=== PATIENT | male | born 1965 | race Caucasian/White ===

== ENCOUNTER 2023-07-07 06:59 | Observation (INO) | payer BC ==
[2023-07-07] MEDS ORDERED: PANTOPRAZOLE 40 MG/10 ML VIAL IVP STA (07:22)
[2023-07-07] MEDS ORDERED: ONDANSETRON 4 MG/2 ML VIAL IVP STA (07:22)
[2023-07-07] MEDS ORDERED: HYDROmorphone 0.5 MG/0.5 ML SYRINGE IVP STA (07:22)
[2023-07-07] MEDS ORDERED: SODIUM CHLORIDE 0.9% 500 ML 500 ML IV STA (07:22)
--- NOTE | 2023-07-07 07:26 | ED ---
General Adult HPI - General Chief complaint: Abdominal Pain Stated complaint: ABD Pain,Dizziness Time Seen by Provider: 07/07/23 07:10 Source: patient, RN notes reviewed, old records reviewed Mode of arrival: wheelchair Limitations: no limitations - History of Present Illness Initial comments: 58-year-old male with 5 hours of upper abdominal pain, epigastric and right upper quadrant. Patient has had nausea without vomiting. No fever. He states he feels bloated. He he had several small bowel movements throughout the night. Patient has history of hypertension, No chest pain. - Related Data Home Medications Medication Instructions Recorded Confirmed Aspirin EC [Ecotrin Low Dose] 81 mg PO HS 07/07/23 07/07/23 Multivitamins, Thera [Multivitamin 1 tab PO HS 07/07/23 07/07/23 (formulary)] Vesta-3/Dha/Epa/Fish Oil [Fish Oil 2 cap PO HS 07/07/23 07/07/23 1,000 mg Softgel] amLODIPine [Norvasc] 5 mg PO HS 07/07/23 07/07/23 Allergies Allergy/AdvReac Type Severity Reaction Status Date / Time No Known Allergies Allergy Verified 07/07/23 09:39 Review of Systems ROS Statement: Those systems with pertinent positive or pertinent negative responses have been documented in the HPI. ROS Other: All systems not noted in ROS Statement are negative. Past Medical History Past Medical History: Myocardial Infarction (CO) Past Surgical History: Heart Catheterization Past Psychological History: No Psychological Hx Reported Smoking Status: Never smoker Past Alcohol Use History: None Reported Past Drug Use History: None Reported General Exam Limitations: no limitations General appearance: alert, in no apparent distress Head exam: Present: atraumatic, normocephalic Eye exam: Present: normal appearance, PERRL ENT exam: Present: normal exam Neck exam: Present: normal inspection. Absent: tenderness, meningismus Respiratory exam: Present: normal lung sounds bilaterally. Absent: respiratory distress, wheezes Cardiovascular Exam: Present: regular rate, normal rhythm GI/Abdominal exam: Present: soft, distended, tenderness (Right upper quadrant). Absent: guarding, rebound Extremities exam: Present: normal inspection, normal capillary refill Neurological exam: Present: alert, oriented X3, CN II-XII intact. Absent: motor sensory deficit Psychiatric exam: Present: normal affect, normal mood Skin exam: Present: warm, dry, intact Course Vital Signs 07/07/23 07/07/23 07:06 11:00 Temperature 98.3 F 98.3 F Pulse Rate 69 69 Respiratory 18 16 Rate Blood Pressure 143/83 138/76 O2 Sat by Pulse 98 98 Oximetry Medical Decision Making - Medical Decision Making Was pt. sent in by a medical professional or institution (, PA, TV PRODUCTION ASSISTANT, urgent care, hospital, or long term...) When possible be specific @ -No Did you speak to anyone other than the patient for history (EMS, parent, family, police, friend...)? What history was obtained from this source @ -No Did you review nursing and triage notes (agree or disagree)? Why? @ -I reviewed and agree with nursing and triage notes Were old charts reviewed (outside hosp., previous admission, EMS record, old EKG, old radiological studies, urgent care reports/EKG's, long term records)? Report findings @ -No old charts were reviewed Differential Diagnosis (chest pain, altered mental status, abdominal pain women, abdominal pain men, vaginal bleeding, weakness, fever, dyspnea, syncope, headache, dizziness, GI bleed, back pain, seizure, CVA, palpatations, mental health, musculoskeletal)? @ Differential Abdominal Pain Men: Appendicitis, cholecystitis, diverticulosis, ischemic bowel, pancreatitis, hepatitis, UTI, gastroenteritis, AAA, incarcerated hernia, bowel obstruction, constipation, inflammatory bowel, hepatitis, peptic ulcer disease, splenic infarction, perforated viscus, testicular torsion, this is not meant to be an all-inclusive list EKG interpreted by me (3pts min.). @ Sinus rhythm, rate of 67, TN interval 208, QRS duration 107, QTC [address] segment elevation X-rays interpreted by me (1pt min.). @KUB, negative for obstruction or intraperitoneal free air CT interpreted by me (1pt min.). @ -None done U/S interpreted by me (1pt. min.). @ -Ultrasound of the gallbladder and right upper quadrant showing dilated gallbladder with pericholecystic fluid, positive Aguirre sign, gall stone. What testing was considered but not performed or refused? (CT, X-rays, U/S, labs)? Why? @ -None What meds were considered but not given or refused? Why? @ -None Did you discuss the management of the patient with other professionals (professionals i.e. , PA, TV PRODUCTION ASSISTANT, lab, RT, psych nurse, social media content specialist, cemetery counselor, teacher, civilian jail officer, insurance case manager)? Give summary @ -Case discussed with Dr. Putnam Was smoking cessation discussed for >3mins.? @ -No Was critical care preformed (if so, how long)? @ -No Were there social determinants of health that impacted care today? How? (Homelessness, low income, unemployed, alcoholism, drug addiction, transportation, low edu. Level, literacy, decrease access to med. care, prison, rehab)? @ -No Was there de-escalation of care discussed even if they declined (Discuss DNR or withdrawal of care, Hospice)? DNR status @ -No What co-morbidities impacted this encounter? (DM, HTN, Smoking, COPD, CAD, Cancer, CVA, ARF, Chemo, Hep., AIDS, mental health diagnosis, sleep apnea, morbid obesity)? @Hypertension Was patient admitted / discharged? Hospital course, mention meds given and route, prescriptions, significant lab abnormalities, going to OR and other pertinent info. @ -58-year-old male with epigastric and right upper quadrant pain with associated nausea. He has tenderness on exam. Ultrasound does show concern for acute cholecystitis although there is no gallbladder wall edema on ultrasound. Patient's has normal white blood cell count, he has an elevated lactic acid of 4.2 which is treated with IV fluids and IV antibiotics. He will be kept nothing by mouth and admitted to general surgery. Undiagnosed new problem with uncertain prognosis? @ -No Drug Therapy requiring intensive monitoring for toxicity (Heparin, Nitro, In sulin, Cardizem)? @ -No Were any procedures done? @ -No Diagnosis/symptom? @ -[Acute cholecystitis, lactic acidosis Acute, or Chronic, or Acute on Chronic? @Acute Uncomplicated (without systemic symptoms) or Complicated (systemic symptoms)? @ -default Side effects of treatment? @ -No Exacerbation, Progression, or Severe Exacerbation? @ -No Poses a threat to life or bodily function? How? (Chest pain, USA, CO, pneumonia, PE, COPD, DKA, ARF, appy, cholecystitis, CVA, Diverticulitis, Homicidal, Suicidal, threat to staff... and all critical care pts) @ -[Yes, sepsis - Lab Data Result diagrams: 07/07/23 07:47 07/08/23 05:24 Lab Results 07/07/23 07/07/23 07/07/23 Range/Units 07:47 07:47 07:47 WBC 6.2 (3.8-10.6) k/uL RBC 5.34 (4.30-5.90) m/uL Hgb 16.0 (13.0-17.5) gm/dL Hct 46.2 (39.0-53.0) % MCV 86.5 (80.0-100.0) fL MCH 29.9 (25.0-35.0) pg MCHC 34.6 (31.0-37.0) g/dL RDW 12.8 (11.5-15.5) % Plt Count 245 (150-450) k/uL MPV 8.0 Neutrophils % 71 % Lymphocytes % 20 % Monocytes % 6 % Eosinophils % 1 % Basophils % 1 % Neutrophils # 4.4 (1.3-7.7) k/uL Lymphocytes # 1.2 (1.0-4.8) k/uL Monocytes # 0.4 (0-1.0) k/uL Eosinophils # 0.0 (0-0.7) k/uL Basophils # 0.0 (0-0.2) k/uL PT 9.9 (9.0-12.0) sec INR 0.9 (<1.2) APTT 22.8 (22.0-30.0) sec Sodium (137-145) mmol/L Potassium (3.5-5.1) mmol/L Chloride (98-107) mmol/L Carbon Dioxide (22-30) mmol/L Anion Gap mmol/L BUN (9-20) mg/dL Creatinine (0.66-1.25) mg/dL Est GFR (CKD-EPI)AfAm (>60 ml/min/1.73 sqM) Est GFR (CKD-EPI)NonAf (>60 ml/min/1.73 sqM) Glucose (74-99) mg/dL Lactic Ac Sepsis Rflx Plasma Lactic Acid Oscar (0.7-2.0) mmol/L Calcium (8.4-10.2) mg/dL Total Bilirubin (0.2-1.3) mg/dL AST (17-59) U/L ALT (4-49) U/L Alkaline Phosphatase (38-126) U/L Troponin I (0.000-0.034) ng/mL Total Protein (6.3-8.2) g/dL Albumin (3.5-5.0) g/dL Amylase (30-110) U/L Lipase (23-300) U/L Urine Color Light Yellow Urine Appearance Turbid (Clear) Urine pH 8.0 (5.0-8.0) Ur Specific Bronson 1.014 (1.001-1.035) Urine Protein Negative (Negative) Urine Glucose (UA) Negative (Negative) Urine Ketones Negative (Negative) Urine Blood Negative (Negative) Urine Nitrite Negative (Negative) Urine Bilirubin Negative (Negative) Urine Urobilinogen <2.0 (<2.0) mg/dL Ur Leukocyte Esterase Negative (Negative) Urine RBC 3 (0-5) /hpf Urine WBC 3 (0-5) /hpf Ur Squamous Epith Cells <1 (0-4) /hpf Urine Bacteria Rare H (None) /hpf Hyaline Casts 3 H (0-2) /lpf Urine Mucus Rare H (None) /hpf 07/07/23 07/07/23 07/07/23 Range/Units 07:47 07:47 07:47 WBC (3.8-10.6) k/uL RBC (4.30-5.90) m/uL Hgb (13.0-17.5) gm/dL Hct (39.0-53.0) % MCV (80.0-100.0) fL MCH (25.0-35.0) pg MCHC (31.0-37.0) g/dL RDW (11.5-15.5) % Plt Count (150-450) k/uL MPV Neutrophils % % Lymphocytes % % Monocytes % % Eosinophils % % Basophils % % Neutrophils # (1.3-7.7) k/uL Lymphocytes # (1.0-4.8) k/uL Monocytes # (0-1.0) k/uL Eosinophils # (0-0.7) k/uL Basophils # (0-0.2) k/uL PT (9.0-12.0) sec INR (<1.2) APTT (22.0-30.0) sec Sodium 140 (137-145) mmol/L Potassium 3.7 (3.5-5.1) mmol/L Chloride 104 (98-107) mmol/L Carbon Dioxide 20 L (22-30) mmol/L Anion Gap 16 mmol/L BUN 21 H (9-20) mg/dL Creatinine 0.81 (0.66-1.25) mg/dL Est GFR (CKD-EPI)AfAm >90 (>60 ml/min/1.73 sqM) Est GFR (CKD-EPI)NonAf >90 (>60 ml/min/1.73 sqM) Glucose 112 H (74-99) mg/dL Lactic Ac Sepsis Rflx Plasma Lactic Acid Oscar 4.2 H* (0.7-2.0) mmol/L Calcium 9.5 (8.4-10.2) mg/dL Total Bilirubin 1.4 H (0.2-1.3) mg/dL AST 36 (17-59) U/L ALT 34 (4-49) U/L Alkaline Phosphatase 71 (38-126) U/L Troponin I <0.012 (0.000-0.034) ng/mL Total Protein 7.3 (6.3-8.2) g/dL Albumin 4.7 (3.5-5.0) g/dL Amylase 64 (30-110) U/L Lipase 113 (23-300) U/L Urine Color Urine Appearance (Clear) Urine pH (5.0-8.0) Ur Specific Bronson (1.001-1.035) Urine Protein (Negative) Urine Glucose (UA) (Negative) Urine Ketones (Negative) Urine Blood (Negative) Urine Nitrite (Negative) Urine Bilirubin (Negative) Urine Urobilinogen (<2.0) mg/dL Ur Leukocyte Esterase (Negative) Urine RBC (0-5) /hpf Urine WBC (0-5) /hpf Ur Squamous Epith Cells (0-4) /hpf Urine Bacteria (None) /hpf Hyaline Casts (0-2) /lpf Urine Mucus (None) /hpf 07/07/23 Range/Units 08:20 WBC (3.8-10.6) k/uL RBC (4.30-5.90) m/uL Hgb (13.0-17.5) gm/dL Hct (39.0-53.0) % MCV (80.0-100.0) fL MCH (25.0-35.0) pg MCHC (31.0-37.0) g/dL RDW (11.5-15.5) % Plt Count (150-450) k/uL MPV Neutrophils % % Lymphocytes % % Monocytes % % Eosinophils % % Basophils % % Neutrophils # (1.3-7.7) k/uL Lymphocytes # (1.0-4.8) k/uL Monocytes # (0-1.0) k/uL Eosinophils # (0-0.7) k/uL Basophils # (0-0.2) k/uL PT (9.0-12.0) sec INR (<1.2) APTT (22.0-30.0) sec Sodium (137-145) mmol/L Potassium (3.5-5.1) mmol/L Chloride (98-107) mmol/L Carbon Dioxide (22-30) mmol/L Anion Gap mmol/L BUN (9-20) mg/dL Creatinine (0.66-1.25) mg/dL Est GFR (CKD-EPI)AfAm (>60 ml/min/1.73 sqM) Est GFR (CKD-EPI)NonAf (>60 ml/min/1.73 sqM) Glucose (74-99) mg/dL Lactic Ac Sepsis Rflx Y Plasma Lactic Acid Oscar (0.7-2.0) mmol/L Calcium (8.4-10.2) mg/dL Total Bilirubin (0.2-1.3) mg/dL AST (17-59) U/L ALT (4-49) U/L Alkaline Phosphatase (38-126) U/L Troponin I (0.000-0.034) ng/mL Total Protein (6.3-8.2) g/dL Albumin (3.5-5.0) g/dL Amylase (30-110) U/L Lipase (23-300) U/L Urine Color Urine Appearance (Clear) Urine pH (5.0-8.0) Ur Specific Bronson (1.001-1.035) Urine Protein (Negative) Urine Glucose (UA) (Negative) Urine Ketones (Negative) Urine Blood (Negative) Urine Nitrite (Negative) Urine Bilirubin (Negative) Urine Urobilinogen (<2.0) mg/dL Ur Leukocyte Esterase (Negative) Urine RBC (0-5) /hpf Urine WBC (0-5) /hpf Ur Squamous Epith Cells (0-4) /hpf Urine Bacteria (None) /hpf Hyaline Casts (0-2) /lpf Urine Mucus (None) /hpf Disposition Clinical Impression: Acute cholecystitis Disposition: ADMITTED IP TO THIS HOSP Condition: Stable Is patient prescribed a controlled substance at d/c from ED?: No Time of Disposition: 09:11
[2023-07-07 07:56] LABS: Basophils % (A) 1 %; Eosinophils % (A) 1 %; HCT 46.2 % (39.0-53.0); Lymphocytes # (A) 1.2 k/uL (1.0-4.8); Lymphocytes % (A) 20 %; MCH 29.9 pg (25.0-35.0); MCHC 34.6 g/dL (31.0-37.0); MCV 86.5 fL (80.0-100.0); Monocytes # (A) 0.4 k/uL (0-1.0); Monocytes % (A) 6 %; Neutrophils # (A) 4.4 k/uL (1.3-7.7); Neutrophils % (A) 71 %; Platelet Count 245 k/uL (150-450); RBC 5.34 m/uL (4.30-5.90); RDW 12.8 % (11.5-15.5); WBC 6.2 k/uL (3.8-10.6)
[2023-07-07 08:09] LABS: INR 0.9 (<1.2)
[2023-07-07 08:10] LABS: ALT 34 U/L (4-49); AST 36 U/L (17-59); African American GFR (CKD) >90 (>60 ml/min/1.73 sqM); Albumin 4.7 g/dL (3.5-5.0); Alkaline Phosphatase 71 U/L (38-126); Amylase 64 U/L (30-110); Anion Gap 16 mmol/L; Blood Urea Nitrogen 21 mg/dL (9-20); Calcium 9.5 mg/dL (8.4-10.2); Carbon Dioxide 20 mmol/L (22-30); Chloride 104 mmol/L (98-107); Glucose 112 mg/dL (74-99); Lipase 113 U/L (23-300); Non-African American GFR(CKD) >90 (>60 ml/min/1.73 sqM); Partial Thromboplastin Time 22.8 sec (22.0-30.0); Potassium 3.7 mmol/L (3.5-5.1); Prothrombin Time 9.9 sec (9.0-12.0); Sodium 140 mmol/L (137-145); Total Bilirubin 1.4 mg/dL (0.2-1.3); Total Protein 7.3 g/dL (6.3-8.2)
--- NOTE | 2023-07-07 08:12 | XR ---
EXAMINATION TYPE: XR KUB DATE OF EXAM: 07/07/2023 8:01 AM INDICATION: Patient age:Male; 58 years old; Reason for study: abdominal pain; . COMPARISON: None. TECHNIQUE: One radiographic view of the abdomen was obtained. FINDINGS: Postsurgical changes of left hip. Hardware appears intact. Surgical anchors seen along the pelvis. Multiple calcifications are present. The bowel gas pattern is nonspecific without dilated lo ops of small or large bowel. There is no evidence for organomegaly or pneumoperitoneum. The osseous structures are intact. No abnormal calcifications are present. Fecal material and gas are demonstrat ed throughout the colon and rectum. IMPRESSION: 1. No evidence renal calculus. 2. Nonspecific bowel gas pattern without radiographic evidence for acute process.
[2023-07-07] MEDS ORDERED: SODIUM CHLORIDE 0.9% 1,000 ML IV ONE (08:34)
--- NOTE | 2023-07-07 08:55 | US ---
EXAMINATION TYPE: US gallbladder DATE OF EXAM: 07/07/2023 COMPARISON: NONE CLINICAL INDICATION: Male, 58 years old with history of ruq pain; RUQ pain, nausea TECHNIQUE: Multiple sonographic images of the right upper quadrant are obtained. FINDINGS: EXAM MEASUREMENTS: Liver Length: 15.6 cm Gallbladder Wall: 0.3 cm CBD: 0.5 cm Right Kidney: 11.7 x 5.4 x 5.2 cm Pancreas: Obscured by bowel gas Liver: appears wnl Gallbladder: stone = 0.8cm. possible small amount of pericholecystic fluid Evidence for sonographic Aguirre's sign: yes CBD: appears wnl Right Kidney: lower pole obscured by overlying bowel gas Pancreas is obscured by overlying bowel gas. Liver is slightly diffusely hyperechoic without focal le rosanne. No gallbladder wall thickening. Single gallstone identified. Common bile duct is within normal limits. Trace pericholecystic fluid suggested. Per retail service representative, positive sonographic Aguirre sign. Rig ht kidney is unremarkable without evidence of solid mass, nephrolithiasis, hydronephrosis. Limited ev aluation of the lower pole due to overlying bowel gas. Corticomedullary differentiation is maintained . IMPRESSION: 1. Findings equivocal for acute cholecystitis with single gallstone with trace pericholecystic fluid and reported positive sonographic Aguirre sign. However there is no wall thickening. Consider further evaluation nuclear medicine HIDA scan. 2. Hepatic steatosis.
[2023-07-07] MEDS ORDERED: HYDROmorphone 0.5 MG/0.5 ML SYRINGE IVP PRN ×2 (09:06→13:05)
[2023-07-07] MEDS ORDERED: NALOXONE 0.4 MG/ML 1 ML VIAL IV PRN ×2 (09:06→13:05)
[2023-07-07] MEDS ORDERED: ONDANSETRON 4 MG/2 ML VIAL IVP PRN ×2 (09:06→13:05)
[2023-07-07 09:45] LABS: Appearance,Urine Turbid (Clear); Bacteria,Urine Rare /hpf; Bilirubin,Urine Negative (Negative); Blood,Urine Negative (Negative); Color,Urine Light Yellow; Glucose,Urine (UA) Negative (Negative); Hyaline Casts,Urine 3 /lpf (0-2); Ketones,Urine Negative (Negative); Leukocyte Esterase,Urine Negative (Negative); Mucus,Urine Rare /hpf; Nitrite,Urine Negative (Negative); Protein,Urine Negative (Negative); RBC,Urine 3 /hpf (0-5); Specific Gravity,Urine 1.014 (1.001-1.035); Squamous Epithelial Cell,Urine <1 /hpf (0-4); Urobilinogen,Urine <2.0 mg/dL (<2.0); WBC,Urine 3 /hpf (0-5)
[2023-07-07] MEDS: PIPERACILLIN-TAZOBACTAM 3.375 GM in SODIUM CHLORIDE 0.9% 100 ML IVPB SCH ×3 (10:00→23:34)
[2023-07-07] MEDS: SODIUM CHLORIDE 0.9% 1,000 ML IV SCH ×3 (10:03→23:36)
[2023-07-07] MEDS ORDERED: IV FLUID CONTINUATION 1,000 ML IV ONE (11:45)
[2023-07-07] MEDS ORDERED: HEPARIN SODIUM,PORCINE/PF 5,000 UNIT/0.5 ML SYRINGE SQ ONE (12:02)
--- NOTE | 2023-07-07 12:03 | P.GSHP ---
History of Present Illness H&P Date: 07/07/23 Chief Complaint: Right upper quadrant pain This a 58-year-old male who presented to the emergency room last night with interrupted quadrant pain. Patient lives in [place]. He is vacationing at his cottage in [place]. Patient was worked up emergency room found have evidence acute cholecystitis. Patient currently feels well. He states he's had complaints of November quadrant pain over the last several months. Past Medical History Past Medical History: Myocardial Infarction (SD) Past Surgical History: Heart Catheterization Past Psychological History: No Psychological Hx Reported Smoking Status: Never smoker Past Alcohol Use History: None Reported Past Drug Use History: None Reported Medications and Allergies Home Medications Medication Instructions Recorded Confirmed Type Aspirin EC [Ecotrin Low Dose] 81 mg PO HS 07/07/23 07/07/23 History Multivitamins, Thera [Multivitamin 1 tab PO HS 07/07/23 07/07/23 History (formulary)] [place]-3/Dha/Epa/Fish Oil [Fish Oil 2 cap PO HS 07/07/23 07/07/23 History 1,000 mg Softgel] amLODIPine [Norvasc] 5 mg PO HS 07/07/23 07/07/23 History Allergies Allergy/AdvReac Type Severity Reaction Status Date / Time No Known Allergies Allergy Verified 07/07/23 09:39 Surgical - Exam Vital Signs Temp Pulse Resp BP Pulse Ox 98.3 F 69 18 143/83 98 07/07/23 07:06 07/07/23 07:06 07/07/23 07:06 07/07/23 07:06 07/07/23 07:06 - General well developed, well nourished - Eyes PERRL - ENT normal pinna - Neck no masses - Respiratory normal expansion - Cardiovascular Rhythm: regular - Abdomen Is minimal right upper quadrant pain. Abdomen: soft, non tender Results - Labs 07/07/23 07:47 07/07/23 07:47 Abnormal Lab Results - Last 24 Hours (Table) 07/07/23 07/07/23 07/07/23 Range/Units 07:47 07:47 07:47 Carbon Dioxide 20 L (22-30) mmol/L BUN 21 H (9-20) mg/dL Glucose 112 H (74-99) mg/dL Plasma Lactic Acid Oscar 4.2 H* (0.7-2.0) mmol/L Total Bilirubin 1.4 H (0.2-1.3) mg/dL Urine Bacteria Rare H (None) /hpf Hyaline Casts 3 H (0-2) /lpf Urine Mucus Rare H (None) /hpf Diabetes panel 07/07/23 Range/Units 07:47 Sodium 140 (137-145) mmol/L Potassium 3.7 (3.5-5.1) mmol/L Chloride 104 (98-107) mmol/L Carbon Dioxide 20 L (22-30) mmol/L BUN 21 H (9-20) mg/dL Creatinine 0.81 (0.66-1.25) mg/dL Glucose 112 H (74-99) mg/dL Calcium 9.5 (8.4-10.2) mg/dL AST 36 (17-59) U/L ALT 34 (4-49) U/L Alkaline Phosphatase 71 (38-126) U/L Total Protein 7.3 (6.3-8.2) g/dL Albumin 4.7 (3.5-5.0) g/dL Calcium panel 07/07/23 Range/Units 07:47 Calcium 9.5 (8.4-10.2) mg/dL Albumin 4.7 (3.5-5.0) g/dL Pituitary panel 07/07/23 Range/Units 07:47 Sodium 140 (137-145) mmol/L Potassium 3.7 (3.5-5.1) mmol/L Chloride 104 (98-107) mmol/L Carbon Dioxide 20 L (22-30) mmol/L BUN 21 H (9-20) mg/dL Creatinine 0.81 (0.66-1.25) mg/dL Glucose 112 H (74-99) mg/dL Calcium 9.5 (8.4-10.2) mg/dL Adrenal panel 07/07/23 Range/Units 07:47 Sodium 140 (137-145) mmol/L Potassium 3.7 (3.5-5.1) mmol/L Chloride 104 (98-107) mmol/L Carbon Dioxide 20 L (22-30) mmol/L BUN 21 H (9-20) mg/dL Creatinine 0.81 (0.66-1.25) mg/dL Glucose 112 H (74-99) mg/dL Calcium 9.5 (8.4-10.2) mg/dL Total Bilirubin 1.4 H (0.2-1.3) mg/dL AST 36 (17-59) U/L ALT 34 (4-49) U/L Alkaline Phosphatase 71 (38-126) U/L Total Protein 7.3 (6.3-8.2) g/dL Albumin 4.7 (3.5-5.0) g/dL - Imaging US - abdomen: report reviewed (Evidence of cholecystitis) Assessment and Plan Assessment: Cholecystitis. Patient was given the option to be discharged and follow-up with a surgeon closer to his home. Patient elected undergo laparoscopic cholecystectomy here today. I went over the risks and benefits of the procedure with the patient and his .
[2023-07-07] MEDS ORDERED: ONDANSETRON 4 MG/2 ML VIAL IVP ONE (12:08)
[2023-07-07] MEDS ORDERED: DEXAMETHASONE SOD PHOSPHATE 4 MG/ML 1 ML VIAL IVP ONE (12:08)
[2023-07-07] MEDS ORDERED: HEPARIN SODIUM,PORCINE 5,000 UNIT/ML 1 ML VIAL SQ ONE (12:09)
[2023-07-07] MEDS ORDERED: MIDAZOLAM 2 MG/2 ML VIAL ONE (12:21)
[2023-07-07] MEDS ORDERED: NEOSTIGMINE 1 MG/ML 10 ML VIAL ONE (12:21)
[2023-07-07] MEDS ORDERED: fentaNYL (PF) 50 MCG/ML 2 ML AMP ONE (12:21)
[2023-07-07] MEDS ORDERED: ROCURONIUM 10 MG/ML (5 ML VIAL) IV ONE (12:21)
[2023-07-07] MEDS ORDERED: LIDOCAINE 2% INJ 20 MG/ML (2 ML VIAL) ONE (12:21)
[2023-07-07] MEDS ORDERED: PROPOFOL 10 MG/ML 20 ML VIAL IV ONE (12:21)
[2023-07-07] MEDS ORDERED: KETOROLAC 15 MG/ML 1 ML VIAL ONE (12:21)
[2023-07-07] MEDS ORDERED: LIDOCAINE 4% LTA KIT (4 ML) TOPICAL ONE (12:21)
[2023-07-07] MEDS ORDERED: GLYCOPYRROLATE 0.2 MG/ML 2 ML VIAL ONE (12:21)
[2023-07-07] MEDS ORDERED: SUCCINYLCHOLINE CHLORIDE 200 MG/10 ML VIAL IV ONE (12:21)
[2023-07-07] MEDS ORDERED: BUPIVACAINE (PF) 0.25% 30 ML VIAL SQ ONE (12:46)
[2023-07-07] MEDS ORDERED: traMADol 50 MG TAB PO PRN (13:05)
[2023-07-07] MEDS ORDERED: HYDROcodone/APAP 5-325MG 1 EACH TAB PO PRN (13:05)
[2023-07-07] MEDS ORDERED: LACTATED RINGERS 1,000 ML IV ONE (13:05)
--- NOTE | 2023-07-07 13:05 | P.OP ---
Date of Procedure: 07/07/23 Preoperative Diagnosis: Cholecystitis Postoperative Diagnosis: Cholecystitis Procedure(s) Performed: Laparoscopic cholecystectomy Anesthesia: NAGA Surgeon: Sylvester Putnam Estimated Blood Loss (ml): 5 Pathology: other (Gallbladder) Condition: stable Disposition: PACU Description of Procedure: The patient was placed on the operating table. The patient received a general endotracheal tube anesthesia. The patients abdomen was prepped and draped in the usual sterile fashion. Through an infraumbilical stab incision, the fascia of the anterior abdominal wall was grasped with a pair of Kochers and then the Veress needle was placed in the peritoneal cavity. Position of the Veress needle was confirmed with positive drop test. The abdomen was then insufflated. After adequate insufflation, the 10 mm trocar was placed in the peritoneal cavity. Following this the laparoscope was placed in the peritoneal cavity. The patient was placed in the head-up, right side up position and then a 5 mm trocar was placed in the right lateral and right subcostal position under direct visualization. A 8 mm trocar was placed in the epigastric position. The gallbladder was grasped in the fundus and infundibulum. Traction on the gallbladder was placed in the lateral and the cephalad positions. The triangle of Calot was visualized.. The cystic duct was bluntly dissected until the union of the cystic duct and common bile duct was seen. A critical view of safety was achieved. The cystic duct was then divided and sealed with the Harmonic scissors. A PDS Endoloop was then placed throughout the cystic duct stump. The cystic artery divided and sealed with the Harmonic scissors. The gallbladder was then removed from the liver bed using Harmonic scissors. The gallbladder was then extracted through the epigastric port site. Operative field was checked for any bleeding spots and Harmonic scissors was used to coagulate the liver bed. The abdomen was irrigated. The trocars were removed. The skin was closed using interrupted 3-0 Vicryl suture. Dermabond dressing were applied. The patient tolerated the procedure well.
[2023-07-07] MEDS: KETOROLAC 15 MG/ML 1 ML VIAL IVP SCH ×2 (17:36→23:34)
--- NOTE | 2023-07-08 01:37 | P.CONS ---
History of Present Illness - Reason for Consult Consult date: 07/07/23 Medical management - Chief Complaint Abdominal pain - History of Present Illness Patient is a 58-year-old male with a known history of myalgia cardiac catheterization, hypertension presents to ER with complaints of abdominal pain mainly at right upper quadrant started last night and has been having nauseous and felt like bloating sensation in the abdomen. Patient states that he did have several small bowel movements throughout the night. Denies any episodes of vomiting. No complaints of chest pain or shortness of breath. KUB x-ray in the ER showed no evidence of renal calculus. Nonspecific bowel gas pattern without radiographic evidence for acute process. EKG showed sinus rhythm Ultrasound gallbladder showed findings equivocal for acute cholecystitis with a single gallstone with trace pericholecystic fluid and reported positive sonographic Aguirre sign. Consider further evaluation with nuclear medicine HIDA scan. Hepatic steatosis. Laboratory showed lactic acid 4.2, BUN 21 and creatinine 0.81 and total bilirubin level is 1.4. AST ALT and alk phos within normal limits. Amylase 113 Urinalysis is negative for infection. Acute cholecystitis with single gallstone as per ultrasound. Patient is status post laparoscopic cholecystectomy postoperative day 0 Prior history of DE status post cardiac catheterization. Hypertension DVT prophylaxis with Lovenox subcu. Plan: Patient will be continued IV hydration with normal saline. Empiric antibiotics now for Zosyn and follow-up closely. Continued pain management and encourage incentive spirometry. Blood pressure medications on hold currently as blood pressure is not elevated. We will continue to follow and further recommendations based on the clinical course. Monitor H&H and BMP tomorrow. Discussed with the patient at bedside in detail. Past Medical History Past Medical History: Myocardial Infarction ([place]) Past Surgical History: Heart Catheterization Past Psychological History: No Psychological Hx Reported Smoking Status: Never smoker Past Alcohol Use History: None Reported Past Drug Use History: None Reported Medications and Allergies Home Medications Medication Instructions Recorded Confirmed Type Aspirin EC [Ecotrin Low Dose] 81 mg PO HS 07/07/23 07/07/23 History Multivitamins, Thera [Multivitamin 1 tab PO HS 07/07/23 07/07/23 History (formulary)] [place]-3/Dha/Epa/Fish Oil [Fish Oil 2 cap PO HS 07/07/23 07/07/23 History 1,000 mg Softgel] amLODIPine [Norvasc] 5 mg PO HS 07/07/23 07/07/23 History Allergies Allergy/AdvReac Type Severity Reaction Status Date / Time No Known Allergies Allergy Verified 07/07/23 09:39 Physical Exam Vitals: Vital Signs Temp Pulse Pulse Resp BP BP Pulse Ox 07/07/23 14:15 64 16 124/74 98 07/07/23 14:00 57 L 16 125/71 100 07/07/23 13:45 61 16 123/70 100 07/07/23 13:30 64 16 135/72 100 07/07/23 13:11 97.1 F L 76 16 157/85 100 07/07/23 12:04 97.3 F L 69 20 136/74 97 07/07/23 11:00 98.3 F 69 16 138/76 98 07/07/23 07:06 98.3 F 69 18 143/83 98 Intake and Output 07/06/23 07/07/23 07/07/23 22:59 06:59 14:59 Intake Total 900 Output Total 5 Balance 895 Intake: IV 900 Output: Estimated Blood Loss 5 Other: Weight 79.379 kg Results CBC & Chem 7: 07/07/23 07:47 07/07/23 07:47 Labs: Abnormal Lab Results - Last 24 Hours (Table) 07/07/23 07/07/23 07/07/23 Range/Units 07:47 07:47 07:47 Carbon Dioxide 20 L (22-30) mmol/L BUN 21 H (9-20) mg/dL Glucose 112 H (74-99) mg/dL Plasma Lactic Acid Oscar 4.2 H* (0.7-2.0) mmol/L Total Bilirubin 1.4 H (0.2-1.3) mg/dL Urine Bacteria Rare H (None) /hpf Hyaline Casts 3 H (0-2) /lpf Urine Mucus Rare H (None) /hpf
[2023-07-08] MEDS: KETOROLAC 15 MG/ML 1 ML VIAL IVP SCH (05:24)
[2023-07-08 07:38] VITALS: RESP 18
[2023-07-08] MEDS ORDERED: ENOXAPARIN 40 MG/0.4 ML SYRINGE SQ SCH (09:00)
[2023-07-08] MEDS ORDERED: PANTOPRAZOLE 40 MG/10 ML VIAL IV SCH (09:00)
[2023-07-08] MEDS: PIPERACILLIN-TAZOBACTAM 3.375 GM in SODIUM CHLORIDE 0.9% 100 ML IVPB SCH (09:11)
[2023-07-08] MEDS: SODIUM CHLORIDE 0.9% 1,000 ML IV SCH (09:12)
[2023-07-08 09:31] LABS: Blood Urea Nitrogen 15.4 mg/dL (9.0-27.0); Calcium 8.5 mg/dL (8.7-10.3); Carbon Dioxide 21.1 mmol/L (21.6-31.8); Chloride 108 mmol/L (96-109); Glucose 108 mg/dL (70-110); Potassium 4.2 mmol/L (3.5-5.5); Sodium 139 mmol/L (135-145)
[2023-07-08 12:39] VITALS: BP 117/75; PULSE 67; TEMP 98.3
--- NOTE | 2023-07-08 12:55 | P.DS ---
Providers Date of admission: 07/07/23 09:06 Expected date of discharge: 07/08/23 Attending physician: Sylvester Putnam Consults: 07/07/23 13:05 Consult Physician Routine Consulting Provider: Dany Brody Consult Reason/Comments: Medical management Do you want consulting provider notified?: Yes Primary care physician: Physician Nonstaff Hospital Course: this a 58-year-old male who underwent laparoscopic cholecystectomy for acute cholecystitis. Patient is doing well postoperative. He has pain. He is tolerating a diet. On the day of discharge his vital signs are stable. His abdomen soft incision sites are clean dry and intact. Patient Condition at Discharge: Stable Plan - Discharge Summary Discharge Rx Participant: Yes New Discharge Prescriptions: No Action amLODIPine [Norvasc] 5 mg PO HS [place]-3/Dha/Epa/Fish Oil [Fish Oil 1,000 mg Softgel] 2 cap PO HS Aspirin EC [Ecotrin Low Dose] 81 mg PO HS Multivitamins, Thera [Multivitamin (formulary)] 1 tab PO HS Discharge Medication List Aspirin EC [Ecotrin Low Dose] 81 mg PO HS 07/07/23 [History] Multivitamins, Thera [Multivitamin (formulary)] 1 tab PO HS 07/07/23 [History] Linden-3/Dha/Epa/Fish Oil [Fish Oil 1,000 mg Softgel] 2 cap PO HS 07/07/23 [History] amLODIPine [Norvasc] 5 mg PO HS 07/07/23 [History] Follow up Appointment(s)/Referral(s): Nonstaff,Physician [Primary Care Provider] - 1-2 days Sylvester Putnam MD [STAFF PHYSICIAN] - 1 Week Discharge Disposition: HOME SELF-CARE
[2023-07-08 13:39] LABS: Basophils # (A) 0.01 X 10*3/uL (0.00-0.10); Basophils % (A) 0.1 %; Eosinophils # (A) 0 X 10*3/uL (0.04-0.35); Eosinophils % (A) 0 %; HCT 40.5 % (39.6-50.0); HGB 13.6 d/dL (13.0-17.0); Lymphocytes # (A) 1.18 X 10*3/uL (0.90-5.00); Lymphocytes % (A) 11.7 %; MCH 29.5 pg (27.0-32.0); MCHC 33.6 d/dL (32.0-37.0); MCV 87.9 FL (80.0-97.0); Mean Platelet Volume 10.7 FL (9.5-12.2); Monocytes # (A) 0.86 X 10*3/uL (0.20-1.00); Monocytes % (A) 8.5 %; NRBC Per 100 WBC 0 X 10*3/uL (0.00-0.01); Neutrophils # (A) 7.99 X 10*3/uL (1.80-7.70); Neutrophils % (A) 79.3 %; Platelet Count 247 X 10*3/uL (140-440); RBC 4.61 X 10*6/uL (4.40-5.60); RDW 12.8 % (11.5-14.5); WBC 10.08 X 10*3/uL (4.50-10.00)
== END 2023-07-08 14:17 | disposition home or self-care (01) ==
LOC: EC 06:59 → INTOOBSV 09:06 → 5NMEDONC 09:06
PROVIDERS: ADMIT Surgery; ATTEND Surgery
DX: K80.12 Calculus of gallbladder with acute and chronic cholecystitis without obstruction (principal); I10 Essential (primary) hypertension; I25.2 Old myocardial infarction; Z79.82 Long term (current) use of aspirin; Z79.899 Other long term (current) drug therapy
CPT/HCPCS: 96376 ×2; 96366 ×3; 96372; 96375 ×2; 96361; 96365; 99285; 36415; 93005; 88304; 80053; 80048; 82150; 83605; 83690; 84484; 85025 ×2; 85610; 85730; 81001; 74018; 76705; 47562; G0378 ×2; J2543 ×2; J2250; J0330; J1644; J1100; J2710; J2405; J1650; J3010; J1885 ×2; J2704; C9113 ×2; J1170; J2001; J0665